=== PATIENT | male | born 1945 | race Caucasian/White ===

== ENCOUNTER → 2020-07-13 13:09 | Outpatient (BNVA) | payer OTHER, SELFPAY | PROVIDERS: PCP Internal Medicine; Visit Provider Physician Assistant | DX: M17.11 Unilateral primary osteoarthritis, right knee (principal) | CPT/HCPCS: 20610; 99202; J1040 ==

== ENCOUNTER 2024-11-27 11:00 | Outpatient (AMB) | payer OTHER, SELFPAY ==
--- NOTE | 2024-11-27 10:59 | A.OFFVIS_ITS ---
Intake Visit Reasons: 6M/ DEMENTIA Allergies No Known Allergies Allergy (Verified 07/13/20 13:13) HPI Comments Details: 79 y/o RH man a fibb, h/o seizure d/o for which he took Dilantin for many years, Covid x 2, Lyme disease treated with 3 courses of antibiotics, mild peripheral neuropathy, and MCI vs mild dementia. He is presenting with medication management for neuropathy and memory impairment. He reports experiencing forgetfulness related to memory impairment. This has not significantly worsened and remains stable. He is managed with memantine. For neuropathy characterized by leg and foot discomfort, gabapentin is used, providing symptomatic relief. The patient reported no changes or new symptoms. Pharmacy management through [facility] is ongoing with no noted complications or interactions. [facility] Medical History (Updated 11/27/24 @ 11:01 by Mundo Francois MD) MCI (mild cognitive impairment) Anosmia Anxiety Peripheral neuropathy Seizure disorder Chronic pain Arrhythmia CHF (congestive heart failure) Review of Systems Const Details: - Neurologic: Reports forgetfulness. - Musculoskeletal: Reports leg and foot discomfort related to neuropathy. - Medication: Currently taking gabapentin and memantine, with requests for refills. Physical Exam Neuro Other: Mental Status: Alert and oriented to person, place, and time. Normal attention. Normal spontaneous speech, fluency, and comprehension. Cranial Nerves: CN II: Visual majano full to confrontation, visual acuity intact. CN III, IV, : Pupils equal, round, reactive to light and accommodation. Extraocular movements are normal. CN V: Facial sensation is normal. CN VII: Facial movements symmetrical. CN VIII: Hearing intact to bedside conversation is normal. CN IX, X: Palate elevates symmetrically. CN XI: Shoulder shrug and head turn symmetrical. CN XII: Tongue midline without atrophy or fasciculations. Extrapyramidal: Full facial expressions and blinking. No rigidity. Movements are appropriate with no tremor or abnormality. Speech: Normal; no dysarthria or tremor. Assessment & Plan Assessment & Plan (1) Peripheral neuropathy: Code(s): G62.9 - Polyneuropathy, unspecified Category: Medical Qualifiers: Peripheral neuropathy type: polyneuropathy, unspecified Qualified Co de(s): G62.9 - Polyneuropathy, unspecified (2) MCI (mild cognitive impairment): Comment: CT brain with cont at [facility] in Jan 2020: No sig pathology EMG/NCS LEs at office in 2019: b/l peroneal neuropathy EMG/NCS at office in 2017: b/l median neuropathy across CT. Code(s): G31.84 - Mild cognitive impairment of uncertain or unknown etiology Category: Medical Plan Impression: a: MCI b: Mild peripheral neuropathy Rec: a: Memantine 10mg bid b: Gabapentin 100mg one at bedtime I reviewed with the patient the current management of neuropathy and memory impairment. We discussed continuing gabapentin for neuropathy, noting its effectiveness for leg and foot discomfort relief, and memantine for memory issues, with no significant changes reported. I emphasized the importance of maintaining medication regimens [facility]. The patient did not have further questions or concerns regarding interactions or medication side effects. A follow-up was advised in six months to reassess the condition and medication efficacy. Medications: New gabapentin 100 mg PO BEDTIME 90 caps 1RF Refilled memantine (Namenda) 10 mg PO BID 180 tabs 0RF 90 days Coding Level of Care Code Est Pt Level 4 (40696) Diagnoses Peripheral polyneuropathy G62.9 Peripheral neuropathy type: polyneuropathy, unspecified MCI (mild cognitive impairment) G31.84
--- OUTSIDE RECORDS SUMMARY | 2024-11-27 15:09 | XMS_ITS | Clinical Summary ---
Author Organization [facility] Facility Address [address] [place] [address] Care Team Providers Care Park Keeper Name Role Phone Govind Forrester MD Primary Care Provider [phone] Social History Tobacco Use Types Packs/Day Years Used Date Smoking Tobacco: Never Assessed Sex and Gender Information Value Date Recorded Sex Assigned at Not on file Legal Sex Male 11:46 AM EST Gender Identity Not on file Sexual Orientation Not on file Plan of Treatment Health Maintenance Due Date Last Done Comments Pneumococcal Vaccine: 50+ Ye ars (2 of 2 - PCV) 10/11/2008 10/12/2007 Influenza Vaccine (#1) 2024 Hepatitis B Vaccine Aged Out No longe r eligible based on patient's age to complete this topic Insurance [facility] Regions 1,2,3 (VACCN) Care Teams Park Keeper Relationship Specialty Start Date End Date Govind Forrester MD [address] [place] [address] PCP - General Internal Medicine 02/14/22
--- OUTSIDE RECORDS SUMMARY | 2024-11-27 15:09 | XMS_ITS | Clinical Summary ---
Author Organization [facility] Address [address] [place] [phone] Phone Care Team Providers Care Physician Assistant Name Role Phone Pcp, Unknown Primary Care Provider Unavailabl e Allergies No known active allergies Social History Tobacco Use Types Packs/Day Years Used Date Smoking Tobacco: Never Smokeless Tobacco: Never Tobacco Cessation:Counseling Given: Not Answered Alcohol Use Standard Drinks/Week Comments Never 0 (1 standard drink = 0.6 oz pur e alcohol) Education Answer Date Recorded Are you interested in more education? Not on ysabel e 11/06/2023 Are you concerned about learning? Not on file 11/06/2023 No 11/06/2023 No 11/06/2023 Digital Access Answer Date Recorded No 11/06/2023 No 11/06/2023 Reliable internet access at home? Not on file 11/06/2023 Device with a working camera? Not on file Intimate Partner Violence Answer Date R ecorded Are you denied basic needs s uch as food, clothing, or medical care? No 11/06/2023 In the past 12 months have y ou been in a relationship with a person who hurts, threatens, or tries to control you? No 11/06/2023 Are you denied basic needs s uch as food, clothing, or medical care? No 11/06/2023 In the past 12 months have y ou been in a relationship with a person who hurts, threatens, or tries to control you? No 11/06/2023 Sex and Gender Information Value Date Recorded Sex Assigned at Male 11/06/2023 9:46 AM EDT Legal Sex Male 9:18 AM EDT Gender Identity Male 11/06/2023 9:46 AM EDT Sexual Orientation Straight 11/06/2023 9: 46 AM EDT Last Filed Vital Signs Vital Sign Reading Time Taken Comments Blood Pressure 145/78 11/06/2023 1:21 PM EDT Pulse 72 11/06/2023 1:21 PM EDT Temperature 36.4 C (97.5 F) 11/06/2023 1:21 PM EDT Respiratory Rate 16 11/06/2023 1:21 PM EDT Oxygen Saturation 98% 11/06/2023 1:21 PM EDT Inhaled Oxygen Concentration - - Weight 61.2 kg (135 lb) 11/06/2023 9:37 AM EDT Height 175.3 cm (5' 9 ) 11/06/2023 9:37 AM EDT Body Mass Index 19.94 11/06/2023 9:37 AM EDT Plan of Treatment Health Maintenance Due Date Last Done Comments Adult Td,Tdap Booster 1946 LIPID PANEL 1946 DEPRESSION SCREENING 1958 HEPATITIS C SCREENING 02/15/1964 PNEUMOCOCCAL VACCINES (50+ y ears) (1 of 1 - PCV) 02/15/1996 ZOSTER VACCINES (1 of 2) 02/15/1996 RSV VACCINE (1 - 1-dose 75+ series) 2021 INFLUENZA VACCINE (#1) 2024 COVID-19 VACCINE (1 - 2023-2 5 season) 2024 SMOKING STATUS SCREENING (On ce After 26 Yrs) Completed 11/06/2023 HEPATITIS A VACCINES Aged Out No long er eligible based on patient's age to complete this topic HIB VACCINES Aged Out No longer eligi ble based on patient's age to complete this topic MENINGOCOCCAL VACCINES (ACWY) Aged Out No longer eligible based on patient's age to complete this topic MENINGOCOCCAL VACCINES (B) Aged Out N o longer eligible based on patient's age to complete this topic Medical Devices Not on file Insurance MEDICARE PART A & B MEDICARE PART A & B MEDICARE PART A & B [facility] MEDICARE PART A & B [facility] MEDICARE PART A & B Member Subscriber Plan / Payer (Ef fective 1977-Present) Name:Jarvis Vivar Member ID:[id number] Relation to Subscriber:Self Name:Jarvis Vivar Subscriber ID:[id number] Payer ID:[id number] Group ID:Not on file Type:Medicare Address: [employer] [address] MEDICARE PART A & B Care Teams Physician Assistant Relationship Specialty Start Date End Date Pcp, Unknown PCP - General 11/06/23 Additional Source Comments The information contained in this document represents components of the legal health record. It is not the complete legal health record.[facility]
--- OUTSIDE RECORDS SUMMARY | 2024-11-27 15:09 | XMS_ITS | Clinical Summary ---
Author Organization [facility] Address [address] [place] [address] Care Team Providers Care Cotton Tier Name Role Phone Govind Forrester Primary Care Provider Allergies No known active allergies Medications amiodarone (PACERONE) 200 mg tablet 2 Active apixaban (ELIQUIS) 5 mg tablet Take 5 mg by mouth. 1 Active aspirin 81 mg EC tablet 1 Active atorvastatin (LIPITOR) 80 mg tablet Take 80 mg by mouth. 1 Active buPROPion (WELLBUTRIN) 100 mg tablet 1 Active carboxymethylce llulose sodium 0.5 % drops 1 Active carvediloL (COREG) 3.125 mg tablet 1 Active cholecalciferol (VITAMIN D3) 1,000 unit tablet 1 Active docusate sodium (COLACE) 100 mg capsule 1 Active enalapril (VASOTEC) 2.5 mg tablet 1 Active ezetimibe (ZETIA) 10 mg tablet 1 Active ferrous gluconate (FERGON) 324 mg (37.5 mg iron) tablet tablet 1 Active PreviDent 1.1 % gel 1 Active fluticasone propionate (FLONASE) 50 mcg/actuation nasal spray 0 Refills, Maintenance, 08/13/20 14:40:00 EDT, Partial fill upon patient request if the prescription is for a schedule II opioid drug. 1 Active ketotifen (ZADITOR) 0.025 % ophthalmic solution 1 Active loratadine (CLARITIN) 10 mg tablet 1 Active memantine (NAMENDA) 10 mg tablet 1 Active mirtazapine (REMERON) 15 mg tablet 1 Active omeprazole (PriLOSEC) 20 mg capsule Take 20 mg by mouth. 1 Active polyethylene glycol 3350 (MIRALAX) powder 1 Active Reguloid, psyllium husk, 3 gram/5.4 gram powder 1 Active simethicone (MYLICON) 80 mg chewable tablet Chew and swallow 160 mg by mouth. 1 Active spironolactone (ALDACTONE) 25 mg tablet 1 Active Vitamin B-1, mononitrate, 100 mg tablet 1 Active vitamin E, dl, acetate, 90 mg (200 unit) capsule 1 Active Social History Tobacco Use Types Packs/Day Years Used Date Smoking Tobacco: Former Smokeless Tobacco: Never Sex and Gender Information Value Date Recorded Sex Assigned at Male 04/11/2021 1:27 PM EST Legal Sex Male 9:14 AM EST Gender Identity Male 04/11/2021 1:27 PM EST Sexual Orientation Straight 04/11/2021 1: 27 PM EST Last Filed Vital Signs Vital Sign Reading Time Taken Comments Blood Pressure 109/63 04/14/2021 1:22 PM EST Pulse 72 04/14/2021 1:08 PM EST Temperature - - Respiratory Rate 16 04/14/2021 1:08 PM EST Oxygen Saturation 99% 04/14/2021 1:08 PM EST Inhaled Oxygen Concentration - - Weight 68.7 kg (151 lb 6 oz) 04/14/2021 1:08 PM EST Height 175.3 cm (5' 9 ) 04/14/2021 1:08 PM EST Body Mass Index 22.35 04/14/2021 1:08 PM EST Plan of Treatment Health Maintenance Due Date Last Done Comments Zoster Vaccines (1 of 2) 02/15/1996 DTaP,Tdap,and Td Vaccines (2 - Tdap) 01/23/2016 01/22/2006 Pneumococcal Vaccine: 50+ Years (3 of 3 - PCV20 or PCV21) 05/11/2019 05/11/2014, 10/12/2007 RSV Vaccine (60+ years old and patients) (1 - 1-dose 75+ series) 2021 Alcohol/Substance Use Screening 03/19/2024 Health Care Proxy Review 03/19/2024 COVID-19 Vaccine (4 - 2024- season) 2024 12/23/2020, 06/15/2020, 05/25/2020 Influenza Vaccine (#1) 2024 , 12/11/2017, 12/26/2016, Additional history exists Hepatitis B Vaccines Aged Out No long er eligible based on patient's age to complete this topic Insurance [employer] Advance Directives Documents on File Type Date Recorded Patient Welcome Center Attendant Expl anation Health Care Proxy 10/10/2021 4:27 PM 10-24 Care Teams Cotton Tier Relationship Specialty Start Date End Date Govind Forrester [address] [place] [id number] PCP - General 03/09/21
== END 2024-11-27 11:04 | disposition home or self-care (01) ==
LOC: HO.HSM 11:00
PROVIDERS: PCP Internal Medicine; Visit Provider Psychiatry & Neurology Neurology
DX: G62.9 Polyneuropathy, unspecified (principal); G31.84 Mild cognitive impairment of uncertain or unknown etiology
CPT/HCPCS: 99214

== ENCOUNTER → 2024-11-27 11:00 | Outpatient (BNVA) | payer OTHER, SELFPAY | PROVIDERS: PCP Internal Medicine; Visit Provider Psychiatry & Neurology Neurology | DX: G62.9 Polyneuropathy, unspecified (principal); G31.84 Mild cognitive impairment of uncertain or unknown etiology | CPT/HCPCS: 99212 ==